=== PATIENT | female | born 1980 | race Hispanic/Latino ===

== ENCOUNTER 2023-09-21 02:16 | Emergency (ER) | payer BC, MEDICAID ==
[~2023-09-21] VITALS: Ht 167.6 cm; Wt 93.9 kg
[2023-09-21 02:47] LABS: BASOPHILS # (AUTO) 0.04 K/uL (0.00-0.20); BASOPHILS % (AUTO) 0.6 % (0.0-5.0); EOSINOPHILS # (AUTO) 0.22 K/uL (0.00-0.70); EOSINOPHILS % (AUTO) 3.1 % (0.0-8.0); HEMATOCRIT 39.8 % (36-48); IMMATURE GRANULOCYTE ABSOLUTE 0.02 K/uL (0-1); LYMPHOCYTES # (AUTO) 1.5 K/uL (1.0-4.8); LYMPHOCYTES % (AUTO) 20.4 % (21.0-51.0); MEAN CORPUSCULAR HEMOGLOBIN 30.1 pg (27.0-33.0); MEAN CORPUSCULAR HGB CONC 33.7 g/dL (32.0-36.0); MEAN CORPUSCULAR VOLUME 89.4 fL (79-99); MONOCYTES # (AUTO) 0.6 K/uL (0.1-1.0); NEUTROPHILS # (AUTO) 4.8 K/uL (1.8-7.7); NEUTROPHILS % (AUTO) 67.6 % (40.0-77.0); PLATELET COUNT (AUTO) 297 K/uL (130-400); RED BLOOD CELL COUNT(AUTO) 4.45 MIL/uL (4.00-5.50); RED CELL DISTRIBUTION WIDTH 13.4 % (11.0-15.5); WHITE BLOOD COUNT (AUTO) 7.2 K/uL (4.8-10.8)
[2023-09-21 02:48] LABS: APPEARANCE,URINE CLEAR (CLEAR); BILIRUBIN,URINE NEGATIVE (NEGATIVE); COLOR,URINE LIGHT-YELLOW (YELLOW); GLUCOSE, URINE (UA) NEGATIVE (NEGATIVE); KETONES,URINE NEGATIVE (NEGATIVE); LEUKOCYTE ESTERASE ,URINE NEGATIVE Leu/uL (NEGATIVE); NITRATE,URINE NEGATIVE (NEGATIVE); OCCULT BLOOD,URINE MODERATE (NEGATIVE); PH,URINE 5.5 (5.0-8.0); PROTEIN,URINE 10 mg/dL (NEGATIVE); UROBILINOGEN,URINE 0.2 mg/dL (0.2-1.0)
[2023-09-21 02:55] LABS: CREATININE 0.8 mg/dL (0.5-1.0); POTASSIUM 3.6 mmol/L (3.5-5.1)
[2023-09-21 02:58] LABS: ADD UA MICROSCOPIC YES
[2023-09-21 02:59] LABS: ALBUMIN 3.1 g/dL (3.5-5.0); BILIRUBIN,TOTAL 0.1 mg/dL (0.2-1.0)
[2023-09-21] MEDS: KETOROLAC 30MG VIAL (30MG/ML) IVP ONE (03:05)
[2023-09-21] MEDS: DICYCLOMINE 20MG (10MG/ML) AMP IM ONE (03:05)
[2023-09-21 03:07] LABS: MUCUS,URINE RARE LPF (None Seen); SQUAMOUS EPITHELIAL CELL,UR RARE /HPF (0-2)
[2023-09-21] MEDS ORDERED: IBUP-1493 PO (03:22)
[2023-09-21] MEDS ORDERED: DICY20TA2 PO (03:35)
[2023-09-21 03:44] VITALS: BP 120/75; PULSE 82; RESP 18; O2SAT 99
== END 2023-09-21 03:45 | disposition home or self-care (01) ==
LOC: EDH 02:16
DX: K80.20 Calculus of gallbladder without cholecystitis without obstruction (principal); K80.50 Calculus of bile duct without cholangitis or cholecystitis without obstruction; Z98.890 Other specified postprocedural states
CPT/HCPCS: 99284; 96374; 76705; 80053; 83690; 85025; 81001; 36415; 93005; 96372; J1885; J0500

== ENCOUNTER 2024-05-05 16:52 | Emergency (ER) | payer OTHER, BC ==
[~2024-05-05] VITALS: Ht 167.6 cm; Wt 79.4 kg
[~2024-05-05 16:52] MED LIST: DICY20TA2 PO; IBUP-1493 PO
[2024-05-05 16:56] VITALS: BP 126/92; PULSE 93; RESP 20; TEMP 98.8
[2024-05-05] MEDS: ketOROlac 15MG/ML VIAL (15MG/ML) IM ONE (18:22)
[2024-05-05] MEDS: ORPHENADRINE 60MG/2ML IM ONE (18:22)
[2024-05-05] MEDS ORDERED: KETO10TA2 PO (18:50)
[2024-05-05] MEDS ORDERED: CYCL10TA16 PO (18:50)
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
--- NOTE | 2024-05-05 19:04 | HMCIMG ---
LUMBAR SPINE RADIOGRAPHS - 2-3 VIEWS INDICATION: Back pain COMPARISON: None FINDINGS: AP, lateral, and coned-down lateral views. Normal lordotic curvature of the lumbar spine is maintained. Five nonrib-bearing lumbar vertebral bodies are noted. No acute fracture or subluxation identified. Vertebral body heights are well-maintained. Mild L5-S1 disc height loss. Multilevel nominal anterior endplate osteophytic spurring. IMPRESSION: No fracture or subluxation identified.
--- NOTE | 2024-05-05 20:42 | HMCIMG ---
CERVICAL SPINE RADIOGRAPHS - 2-3 VIEWS INDICATION: Pain COMPARISON: None FINDINGS: AP, lateral views. Straightening of the normal lordosis may be related to overlying muscle spasm and/or patient positioning. No acute fracture or malalignment identified. Prevertebral soft tissues are not swollen. The atlanto-dens interval is within normal limits for patient's age. Vertebral body heights are within normal limits. Disc heights are well preserved Visible lung apices are clear. IMPRESSION: No acute fracture or subluxation identified.
== END 2024-05-05 19:09 | disposition home or self-care (01) ==
LOC: EDH 16:52
DX: S16.1XXA Strain of muscle, fascia and tendon at neck level, initial encounter (principal); S39.012A Strain of muscle, fascia and tendon of lower back, initial encounter; Z79.1 Long term (current) use of non-steroidal anti-inflammatories (NSAID); V89.2XXA Person injured in unspecified motor-vehicle accident, traffic, initial encounter; Y93.89 Activity, other specified; Y92.488 Other paved roadways as the place of occurrence of the external cause; Y99.8 Other external cause status
CPT/HCPCS: 99284; 72040; 72100; 96372 ×2; J1885; J2360

== ENCOUNTER 2024-06-22 06:29 | Emergency (ER) | payer BC ==
[~2024-06-22] VITALS: Ht 165.1 cm; Wt 97.1 kg
[~2024-06-22 06:29] MED LIST changes: +CYCL10TA16 PO; +KETO10TA2 PO
[2024-06-22 07:34] LABS: BASOPHILS # (AUTO) 0.05 K/uL (0.00-0.20); BASOPHILS % (AUTO) 0.7 % (0.0-5.0); CREATININE 0.8 mg/dL (0.5-1.0); EOSINOPHILS % (AUTO) 2.7 % (0.0-8.0); HEMATOCRIT 40.6 % (36-48); IMMATURE GRANULOCYTE ABSOLUTE 0.02 K/uL (0-1); LYMPHOCYTES # (AUTO) 1.6 K/uL (1.0-4.8); LYMPHOCYTES % (AUTO) 22.2 % (21.0-51.0); MEAN CORPUSCULAR VOLUME 90.6 fL (79-99); MONOCYTES # (AUTO) 0.5 K/uL (0.1-1.0); MONOCYTES % (AUTO) 6.8 % (3.0-13.0); NEUTROPHILS # (AUTO) 4.9 K/uL (1.8-7.7); NEUTROPHILS % (AUTO) 67.3 % (40.0-77.0); PLATELET COUNT (AUTO) 316 K/uL (130-400); POTASSIUM 4.4 mmol/L (3.5-5.1); RED BLOOD CELL COUNT(AUTO) 4.48 MIL/uL (4.00-5.50); RED CELL DISTRIBUTION WIDTH 14.2 % (11.0-15.5); WHITE BLOOD COUNT (AUTO) 7.3 K/uL (4.8-10.8)
[2024-06-22 07:46] LABS: ALANINE AMINOTRANSFERASE 23 U/L (12-78); ALBUMIN 3.1 g/dL (3.5-5.0); ASPARTATE AMINOTRANSFERASE 18 U/L (10-37); BILIRUBIN,DIRECT < 0.1 mg/dL (0.0-0.3); BILIRUBIN,TOTAL 0.2 mg/dL (0.2-1.0); TOTAL PROTEIN, SERUM 7.3 g/dL (6.0-8.3)
--- NOTE | 2024-06-22 07:47 | ERN ---
General Chief Complaint: Abdominal Pain Stated Complaint: C/O RUQ PAIN RADIATING TO BACK ONSET 3 AM History of Present Illness Initial Comments This is a case of a 44-year-old female with a past medical history of gallstones who presented to the ER with the complaints of right upper quadrant pain radiating to the back associated with nausea, vomiting since 3:00 a.m. in the morning. She denies fever, chills, headache, cold, cough, chest pain, palpitations shortness of breath, burning sensation when urinating/increased frequency of urination, diarrhea. Her last menstrual period was on 06/21/2024. Allergies: Coded Allergies: No Known Allergies (Unverified Allergy, Unknown, 09/21/23) Home Meds Active Scripts Ondansetron (Ondansetron Odt) 4 Mg Tab.rapdis, 1 TAB PO TIDP PRN for nausea/vomiting for 4 Days, #12 TAB 0 Refills Prov:LUCI COLEMAN MD 06/22/24 Naproxen (Naproxen) 250 Mg Tablet, 1 TAB PO [id number] PRN for PAIN for 7 Days, #14 TAB 0 Refills Prov:LUCI COLEMAN MD 06/22/24 Cyclobenzaprine HCl (Flexeril) 10 Mg Tab, 10 MG PO BID for muscle sstiffness for 5 Days, #10 TAB 0 Refills Prov:NATE PAREDES 05/05/24 Ketorolac Tromethamine (Ketorolac Tromethamine) 10 Mg Tablet, 10 MG PO BID for 5 Days, #10 TAB Prov:NATE PAREDES 05/05/24 Dicyclomine HCl (Bentyl) 20 Mg Tab, 20 MG PO TIDP PRN for PAIN, #60 TAB Prov:ANA LILIA LUZ MD 09/21/23 Ibuprofen (Motrin/Advil) 800 Mg Tab, 800 MG PO TID, #30 TAB Prov:ANA LILIA LUZ MD 09/21/23 Past Medical History Past Medical History: No Pertinent History Past Surgical History: Family History Family History: Negative Social History Social History: Negative, Lives with family Female( History) LMP: Jun 21, 2024 ROS Dictation CONSTITUTIONAL: No chills, no fever, no weakness, no diaphoresis, no malaise. HEAD/FACE: No signs of trauma. EENT: No eye pain, no blurred vision, no tearing, no double vision, no ear pain, no ear discharge, no nose pain, no nasal congestion, no throat pain, no throat swelling, no mouth pain. RESPIRATORY: No cough, no orthopnea, no SOB, no stridor, no wheezing. CARDIOVASCULAR: No chest pain, no edema, no palpitations, no syncope. GASTROINTESTINAL/ABDOMINAL: Right upper quadrant and epigastric pain, constipation, nausea, nonbilious vomiting GENITOURINARY: No abnormal discharge, no dysuria, no frequent urination, no hematuria. No complaints of pain in the genitals. MUSCULOSKELETAL: No back pain, no gout, no joint pain, no joint swelling, no muscle pain, no muscle stiffness, no neck pain. INTEGUMENTARY: No change in color, no change in hair/nails, no dryness, no lesion, no lumps, no rash. NEUROLOGICAL/PSYCH: No anxiety, not depressed, no emotional problem, no headache, no numbness, no pre-existing deficit, no history of seizures, no tremors, no weakness. HEMATOLOGIC/LYMPHATIC: Not anemic, no history of blood clots, no apparent bleeding, no bruising, glands not swollen. All Systems Negative, Except as Noted. Physical Exam Physical Exam Dictation Physical Exam Dictation VITAL SIGNS: Reviewed. GENERAL APPEARANCE: Alert, oriented x3, no acute distress, obese. HEAD AND FACE: Non-traumatic. EYES: PERRL, pink conjunctivas, eyelid no trauma, anterior chamber clear. EARS: Pinnas intact and no signs of trauma or erythema. Ear canals clear and no discharge. TMs no erythema. NOSE: No discharge, no bleeding. OROPHARYNX: Mouth normal, teeth no caries, tongue pink. Pharynx clear, no erythema. Tonsils no exudates, no abscesses noted. Mucous membrane moist. NECK: Supple, non-tender, no thyromegaly, no masses, no JVD, no bruits. BREAST: Deferred. CHEST: No tenderness, no crepitus, no paradoxical movement, no retractions. LUNGS: Clear, well-ventilated, symmetric, no rales, no wheezing, no rhonchi, no stridor, good breath sounds bilaterally. HEART: Regular rate, regular rhythm, no murmur, no gallops. VASCULAR: No peripheral edema. ABDOMEN: Soft, positive bowel sounds, nondistended, severe tenderness on palpation in right upper quadrant and epigastric region, no rebound RECTAL: Deferred. GENITAL: Deferred. NEUROLOGICAL: Normal speech, gross motor function intact, gross sensory function intact. MUSCULOSKELETAL: Neck nontender, full range of motion, back nontender, full range of motion. EXTREMITIES: Nontender, full range of motion. SKIN: Color pink, dry, no turgor, no rash, no lacerations, no abrasions, no contusions. LYMPHATICS: Deferred. Results Laboratory and Microbiology Lab and Micro Result Laboratory Tests Test 06/22/24 06:37 06/22/24 07:06 Urine Color LIGHT-YELLOW (YELLOW) Urine Appearance CLEAR (CLEAR) Urine pH 5.5 (5.0-8.0) Urine Specific [place] 1.025 (1.001-1.031) Urine Protein NEGATIVE mg/dL (NEGATIVE) Urine Glucose (UA) NEGATIVE mg/dL (NEGATIVE) Urine Ketones NEGATIVE mg/dL (NEGATIVE) Urine Occult Blood MODERATE (NEGATIVE) H Urine Nitrate NEGATIVE (NEGATIVE) Urine Bilirubin NEGATIVE mg/dL (NEGATIVE) Urine Urobilinogen 0.2 mg/dL (0.2-1.0) Urine Leukocyte Esterase NEGATIVE Shama/uL Urine RBC 2-5 /HPF (0-1) H Urine WBC 0-1 /HPF (0-1) Urine Squamous Epithelial Cells FEW /HPF (0-2) Urine Bacteria None /HPF (None Seen) Urine HCG, Qualitative NEGATIVE (NEGATIVE) White Blood Count 7.3 K/uL (4.8-10.8) Red Blood Count 4.48 MIL/uL (4.00-5.50) Hemoglobin 13.0 g/dL (12.0-16.0) Hematocrit 40.6 % (36-48) Mean Corpuscular Volume 90.6 fL (79-99) Mean Corpuscular Hemoglobin 29.0 pg (27.0-33.0) Mean Corpuscular Hemoglobin Concent 32.0 g/dL (32.0-36.0) Red Cell Distribution Width 14.2 % (11.0-15.5) Platelet Count 316 K/uL (130-400) Mean Platelet Volume 10.9 fL (7.5-10.5) H Immature Granulocyte % (Auto) 0.3 % (0-1) Neutrophils (%) (Auto) 67.3 % (40.0-77.0) Lymphocytes (%) (Auto) 22.2 % (21.0-51.0) Monocytes (%) (Auto) 6.8 % (3.0-13.0) Eosinophils (%) (Auto) 2.7 % (0.0-8.0) Basophils (%) (Auto) 0.7 % (0.0-5.0) Neutrophils # (Auto) 4.9 K/uL (1.8-7.7) Lymphocytes # (Auto) 1.6 K/uL (1.0-4.8) Monocytes # (Auto) 0.5 K/uL (0.1-1.0) Eosinophils # (Auto) 0.20 K/uL (0.00-0.70) Basophils # (Auto) 0.05 K/uL (0.00-0.20) Absolute Immature Granulocyte (auto 0.02 K/uL (0-1) Nucleated Red Blood Cells 0.0 % (0.0-0.19) Sodium Level 139 mmol/L (136-145) Potassium Level 4.4 mmol/L (3.5-5.1) Chloride Level 105 mmol/L (101-111) Carbon Dioxide Level 30 mmol/L (21-32) Blood Urea Nitrogen 16 mg/dL (7-18) Creatinine 0.8 mg/dL (0.5-1.0) Glomerular Filtration Rate Calc 94 mL/min (>90) Random Glucose 105 mg/dL (70-105) Total Calcium 8.3 mg/dL (8.5-10.1) L Total Bilirubin 0.2 mg/dL (0.2-1.0) Direct Bilirubin < 0.1 mg/dL (0.0-0.3) Aspartate Amino Transf (AST/SGOT) 18 U/L (10-37) Alanine Aminotransferase (ALT/SGPT) 23 U/L (12-78) Alkaline Phosphatase 148 U/L (50-136) H Troponin I High Sensitivity < 4 ng/L (4-50) L Total Protein 7.3 g/dL (6.0-8.3) Albumin 3.1 g/dL (3.5-5.0) L Lipase 55 U/L (16-77) EKG/XRAY/US/CT/MRI EKG Comment PROCEDURE: EKG - 12 LEAD EKG TRACING- TECHNICAL [facility] Test Date: 2024-06-22 Test Time: 07:47:03 Pat Name: LETTY DELVALLE Department: [facility] Room: Gender: 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 There are no focal liver masses. The liver is not enlarged.There multiple stones present within the gallbladder. There is no wall thickening or edema. Common duct was not well visualized. The intrahepatic biliary tree is not distended. Common duct is obscured. Right kidney is normal with no evidence of mass, hydronephrosis or stone.The pancreas appears normal as well. IMPRESSION: 1. Cholelithiasis without evidence of acute cholecystitis. 2. Common duct not well seen but the intrahepatic biliary tree does not appear distended. MDM MDM Potential differential diagnoses include: Cholecystitis Cholelithiasis Choledocholithiasis Gastritis Constipation PR Assessment: We will order CBC to rule any anemia, infections and to evaluate the overall health of the patient. CMP was ordered in order to assess various electrolytes, kidney function, liver function ,protein levels and blood glucose levels, right upper quadrant ultrasound to rule out cholecystitis. We will order 1 L NS for adequate hydration, ketorolac 30 mg IV for pain, 4 mg Zofran IV for nausea. I will re-evaluate the patient after treatment and diagnostic exams have returned to determine whether they require further testing, can be safely discharged home, or need admission for further treatment and evaluation. Given the social determinants of health affecting care, including literacy, access to medical care, prescription drug management, and [id number] drugs, I will ensure that treatment plans are tailored accordingly. Revaluation : Patient is awake alert and oriented. Hemodynamically stable. She states that she feels better and her pain has significantly improved. CBC is unremarkable, BMP shows alkaline phosphatase levels at 148 similar in range when compared to the previous year levels. Lipase, troponin levels are normal. EKG resulted in sinus rhythm. Urinalysis is negative for leukocyte esterase, WBC. Right upper quadrant ultrasound resulted in Cholelithiasis without evidence of acute cholecystitis. Common duct not well seen but the intrahepatic biliary tree does not appear distended. Disposition: Patient is being discharged home PRESCRIPTION OF NAPROXEN 250 MG Q.12H P.R.N. FOR 7 DAYS, ONDANSETRON 4 MG Q.8H P.R.N. FOR 4 DAYS, 12 TABLETS Advised to follow up with PCP within 2-3 days Advised to follow up with the surgeon, outpatient for further evaluation in view of cholelithiasis Avoid fried, greasy or fatty foods Stay hydrated by drinking plenty of water Take over the counter pain medications like acetaminophen/ibuprofen p.r.n. for pain Monitor for symptoms like severe or persistent abdominal pain that does not improve with medications, fever, chills or signs of infection like redness, warmth, swelling, jaundice, dark urine or pale stools, persistent nausea or vomiting, difficulty breathing or confusion and seek immediate medical attention in such scenario. ED Course Orders Procedure Category Date Status Time Vital Signs Per CPOE 06/22/24 Transmitted Routine 06:52 Saline Lock Iv CPOE 06/22/24 Transmitted 06:52 Cbc With Differential LAB 06/22/24 Complete 06:52 Lipase LAB 06/22/24 Complete 06:52 Urinalysis Profile LAB 06/22/24 Complete 06:52 Basic Metabolic Panel LAB 06/22/24 Complete 06:52 ,Urine Test LAB 06/22/24 Complete 07:28 Hepatic Function Panel LAB 06/22/24 Complete 07:28 Ondansetron 4mg Inj PHA 06/22/24 Complete (Zofran 4mg Inj) 07:30 Pantoprazole 40mg Inj PHA 06/22/24 Complete (Protonix 40mg Inj 08:00 Troponin I High LAB 06/22/24 Complete Sensitivity 07:37 12 Lead Ekg Tracing- EKG 06/22/24 Resulted Technical 07:37 Us Abdominal Ruq\Ltd US 06/22/24 Resulted 07:37 Chest 1vw RAD 06/22/24 Logged 07:48 Ketorolac PHA 06/22/24 Complete Tromethamine 30mg/Ml 09:00 0.9%Nacl 1000ml (Ns PHA 06/22/24 Complete 1000ml) 09:00 Current Medications Medications (Trade) Dose Ordered Sig/Sherry Route PRN Reason Start Time Stop Time Status Last Admin Dose Admin Ketorolac Tromethamine (toRADol) 30 mg ONCE ONCE IVP 06/22/24 09:00 06/22/24 09:01 DC 06/22/24 09:39 Morphine Sulfate (morPHINE 2MG SYG) 2 mg ONCE ONCE IVP 06/22/24 07:30 06/22/24 07:38 DC Morphine Sulfate (morPHINE 2MG SYG) 2 mg ONCE ONCE IVP 06/22/24 08:30 06/22/24 08:38 DC Ondansetron HCl (zoFRAN 4MG INJ) 4 mg ONCE ONCE IVP 06/22/24 07:30 06/22/24 07:32 DC 06/22/24 08:43 Pantoprazole Sodium (PROTonix 40MG INJ) 40 mg ONCE ONCE IVP 06/22/24 08:00 06/22/24 08:01 DC 06/22/24 08:18 Sodium Chloride 1,000 ml @ 0 mls/hr ONCE ONCE IV 06/22/24 09:00 06/22/24 09:01 DC 06/22/24 09:39 Vital Signs Date Time Temp Pulse Resp B/P (MAP) Pulse Ox O2 Delivery O2 Flow Rate FiO2 06/22/24 07:30 97.3 80 16 124/91 96 Room Air* 0 21 06/22/24 06:31 98.4 82 20 139/88 99 Room Air DX & DISP Disposition: Discharge Departure Impression: Primary Impression: Biliary colic Additional Impression: Cholelithiasis Critical Time: 30 minutes Condition: Stable Scripts Ondansetron (Ondansetron Odt) 4 Mg Tab.rapdis 1 TAB PO TIDP PRN for nausea/vomiting for 4 Days, #12 TAB 0 Refills Prov: LUCI COLEMAN MD 06/22/24 Naproxen (Naproxen) 250 Mg Tablet 1 TAB PO [id number] PRN for PAIN for 7 Days, #14 TAB 0 Refills Prov: LUCI COLEMAN MD 06/22/24 Additional Instructions: follow up with PCP within 2-3 days follow up with the surgeon, outpatient for further evaluation in view of cholelithiasis Avoid fried, greasy or fatty foods Stay hydrated by drinking plenty of water Take over the counter pain medications like acetaminophen/ibuprofen p.r.n. for pain Monitor for symptoms like severe or persistent abdominal pain that does not improve with medications, fever, chills or signs of infection like redness, warmth, swelling, jaundice, dark urine or pale stools, persistent nausea or vomiting, difficulty breathing or confusion and seek immediate medical attention in such scenario. Referrals: AMBER FORD (PCP) MARNIE FABIAN MD ATTESTATION BY PHYSICIAN I have seen and examined the patient. I reviewed the documentation, medical decision making, and treatment plan as noted by the resident above. I agree with the findings and plan of care. LUCI FORREST MD, MD Jun 22, 2024 07:47
--- NOTE | 2024-06-22 07:53 | EKG ---
[facility] Test Date: 2024-06-22 Test Time: 07:47:03 Pat Name: LETTY DELVALLE Department: 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
[2024-06-22 07:59] LABS: ADD UA MICROSCOPIC YES; APPEARANCE,URINE CLEAR (CLEAR); BILIRUBIN,URINE NEGATIVE (NEGATIVE); COLOR,URINE LIGHT-YELLOW (YELLOW); GLUCOSE, URINE (UA) NEGATIVE (NEGATIVE); KETONES,URINE NEGATIVE (NEGATIVE); LEUKOCYTE ESTERASE ,URINE NEGATIVE Leu/uL (NEGATIVE); NITRATE,URINE NEGATIVE (NEGATIVE); OCCULT BLOOD,URINE MODERATE (NEGATIVE); PH,URINE 5.5 (5.0-8.0); PROTEIN,URINE NEGATIVE (NEGATIVE); UROBILINOGEN,URINE 0.2 mg/dL (0.2-1.0)
[2024-06-22 08:01] LABS: MUCUS,URINE RARE LPF (None Seen); SQUAMOUS EPITHELIAL CELL,UR FEW /HPF (0-2); WBC,URINE 0-1 /HPF (0-1)
[2024-06-22] MEDS: PANTOPrazole 40 MG/VIAL IVP ONE (08:18)
[2024-06-22] MEDS: ondanSETRON 4MG INJ IVP ONE (08:18)
[2024-06-22] MEDS ORDERED: morPHINE 2 MG SYG IVP ONE (08:30)
[2024-06-22] MEDS: morPHINE 2 MG SYG IVP ONE (08:30)
--- NOTE | 2024-06-22 09:22 | HMCIMG ---
US ABDOMINAL RUQ\E\LTD HISTORY: ruq pain , nausea, history of gall stones COMPARISON: 416 24 cm per FINDINGS: There is normal sonographic appearance of the liver. There are no focal liver masses. The liver is not enlarged.There multiple stones present within the gallbladder. There is no wall thickening or edema. Common duct was not well visualized. The intrahepatic biliary tree is not distended. Common duct is obscured. Right kidney is normal with no evidence of mass, hydronephrosis or stone.The pancreas appears normal as well. IMPRESSION: 1. Cholelithiasis without evidence of acute cholecystitis. 2. Common duct not well seen but the intrahepatic biliary tree does not appear distended.
[2024-06-22] MEDS: 0.9%NACL 1000ML 1,000 ML IV ONE (09:39)
[2024-06-22] MEDS: ketOROlac 30MG VIAL (30MG/ML) IVP ONE (09:39)
[2024-06-22] MEDS ORDERED: ONDA-243 PO (10:19)
[2024-06-22] MEDS ORDERED: NAPR-1196 PO (10:19)
[2024-06-22 11:27] VITALS: BP 124/73; PULSE 75; RESP 16; TEMP 97.3; O2SAT 99
== END 2024-06-22 11:28 | disposition home or self-care (01) ==
LOC: EDH 06:29
DX: K80.50 Calculus of bile duct without cholangitis or cholecystitis without obstruction (principal); K80.20 Calculus of gallbladder without cholecystitis without obstruction; Z79.1 Long term (current) use of non-steroidal anti-inflammatories (NSAID)
CPT/HCPCS: 99284; 96374; 76705; 96375; 96361; 80076; 84484; 80048; 83690; 85025; 81001; 81025; 36415; 93005; J1885; J7030; J2405; J2470; J2270